=== PATIENT | female | born 1975 | race Hispanic/Latino ===

== ENCOUNTER 2019-02-16 08:12 | Observation (INO) | payer BC ==
[2019-02-16] MEDS ORDERED: MORPHINE 4 MG/ML SYR ONE (09:01)
[2019-02-16] MEDS ORDERED: NA CHLORIDE 0.9% 1,000 ML ONE (09:01)
[2019-02-16] MEDS ORDERED: ONDANSETRON 4 MG/2 ML VIAL ONE (09:01)
--- NOTE | 2019-02-16 09:06 | ER ---
Nurse's Notes [facility] Name: Mandie Napoles Age: 44 yrs Sex: Female : 1975 Arrival Date: 02/16/2019 Time: 08:16 Bed 30 Private MD: Darwin Izaguirre B Diagnosis: demise Presentation: 02/16 08:23 Presenting complaint: Patient states: Approx 19-20 weeks gestation, reports clear fluid ph leaking last night and vaginal bleeding w/ lower abdominal pain. Transition of care: patient was not received from another setting of care. Onset of symptoms was February 16, 2019. Risk Assessment: Do you want to hurt yourself or someone else? Patient reports no desire to harm self or others. Initial Sepsis Screen: Does the patient meet any 2 criteria? No. Patient's initial sepsis screen is negative. Does the patient have a suspected source of infection? No. Patient's initial sepsis screen is negative. Care prior to arrival: None. 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 - Social history:: Smoking status: Patient/guardian denies using tobacco. - Ebola Screening: : No symptoms or risks identified at this time. - Family history:: not pertinent. - Hospitalizations: : No recent hospitalization is reported. Screenin:45 Abuse screen: Denies threats or abuse. Denies injuries from another. Nutritional ph screening: No deficits noted. Tuberculosis screening: Fall Risk None identified. Assessment: 08:20 Obstetrical Assessment: Contractions began this morning. Patient reports abdominal ph cramping. General: Appears in no apparent distress. uncomfortable, well groomed, Behavior is cooperative, appropriate for age, anxious. Pain: Complains of pain in suprapubic area Quality of pain is described as crampy. Neuro: Level of Consciousness is awake, alert, obeys commands, Oriented to person, place, time, situation. Cardiovascular: Capillary refill < 3 seconds in bilateral fingers Patient's skin is warm and dry. Respiratory: Airway is patent Respiratory effort is even, unlabored, Respiratory pattern is regular, symmetrical. GI: Abdomen is round Reports lower abdominal pain. : Reports discharge, watery, pain in suprapubic area vaginal bleeding that is. Derm: Skin is intact, is healthy with good turgor, Skin is pink, warm \\T\\ dry. Musculoskeletal: Circulation, motion, and sensation intact. Range of motion: intact in all extremities. 08:43 Reassessment: Pt states, " I feel like something is coming out and I'm bleding a lot." ph Dr Dc notified and at bedside, umbilical cord noted to be protruding from vaginal canal, poultry boner OB notified, ERP remains at bedside. 08:51 Reassessment: Fetus delivered w/ breech presentation, Robert OSCAR at bedside to ph assist L\\T\\D nurse. 09:15 Reassessment: Placenta delivered, appears to be intact, VSS, ERP remains at bedside. ph Vital Signs: 08:24 BP 133 / 78; Pulse 88; Resp 18; Temp 98.1; Pulse Ox 98% on R/A; Weight 64.41 kg; ph 09:25 BP 118 / 57; Pulse 67; Resp 18; Pulse Ox 99% on 2 lpm NC; ph ED Course: 08:16 Patient arrived in ED. dp 08:17 Jim Dc MD is Attending Physician. rn 08:18 Darwin Izaguirre MD is Private Physician. dp 08:22 Diana Alexander RN is Primary Nurse. ph 08:24 Triage completed. ph 08:35 Patient has correct armband on for positive identification. Placed in gown. Bed in low ph position. Call light in reach. Side rails up X 1. Pulse ox on. NIBP on. Door closed. Noise minimized. Warm blanket given. Head of bed elevated. 08:45 Arm band placed on. ph 08:50 Inserted saline lock: 18 gauge in right antecubital area, using aseptic technique. ph Blood collected. 08:51 vaginal delivery of . Patient admitted, IV remains in place. ph 09:04 Darwin Izaguirre MD is Hospitalizing Provider. rn Administered Medications: 08:52 Drug: morphine 4 mg Route: IVP; Site: right antecubital; ph 09:15 Follow up: Response: No adverse reaction ph 08:52 Drug: Zofran 4 mg Route: IVP; Site: right antecubital; ph 09:15 Follow up: Response: No adverse reaction ph 08:52 Drug: NS 0.9% 1000 ml Route: IV; Rate: 1000 ml; Site: right antecubital; ph 09:25 Follow up: Response: No adverse reaction; IV Status: Infusion continued upon admission ph 09:54 Not Given (administered in L\\T\\D): Pitocin 20 units IV at calculated rate once ph Outcome: 09:04 Decision to Hospitalize by Provider. rn 09:28 Admitted to L \\T\\ D, accompanied by nurse, family with patient, via stretcher, with ph oxygen, on monitor, with chart. 09:28 Condition: stable 09:28 Instructed on the need for admit. 09:55 Patient left the ED. ph Signatures: Jim Dc MD MD rn Hall, Patricia, RN RN ph Baxter, Heather, RN RN Ahmet Wright
--- NOTE | 2019-02-16 09:06 | EDPHYS ---
Physician Documentation [facility] Name: Mandie Napoles Age: 44 yrs Sex: Female : 1975 Arrival Date: 02/16/2019 Time: 08:16 Bed 30 Private MD: Darwin Izaguirre B ED Physician Jim Dc HPI: 02/16 08:25 This 44 yrs old Female presents to ER via Unassigned with complaints of OB rn Problem (> 20 Weeks). 08:25 The patient presents to the emergency department with abdominal pain, vaginal bleeding, rn that is light, with no clots. The estimated gestational age is 19 weeks. course: care: private OB physician, Leakage of Fluid: yes, Ultrasound: the patient had an ultrasound. Previous pregnancies: in previous pregnancies patient has had. The patient has not experienced similar symptoms in the past. At approx 19 weeks presents with lower abd cramping, leakage of small amount of clear fluid, has now stopped, and today having lower abd cramping. . 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 - Social history:: Smoking status: Patient/guardian denies using tobacco. - Ebola Screening: : No symptoms or risks identified at this time. - Family history:: not pertinent. - Hospitalizations: : No recent hospitalization is reported. ROS: 08:25 Constitutional: Negative for fever, chills, and weight loss, Cardiovascular: Negative rn for chest pain, palpitations, and edema, Respiratory: Negative for shortness of breath, cough, wheezing, and pleuritic chest pain, Abdomen/GI: + lower abd cramping Back: Negative for injury and pain, : + vaginal bleeding and leakage of fluid MS/Extremity: Negative for injury and deformity, Skin: Negative for injury, rash, and discoloration, Neuro: Negative for headache, weakness, numbness, tingling, and seizure. Exam: 08:25 Constitutional: This is a well developed, well nourished patient who is awake, alert, rn appears anxious Head/Face: Normocephalic, atraumatic. ENT: MMM Respiratory: No increased work of breathing, no retractions or nasal flaring. Abdomen/GI: soft, + mild suprapubic tenderness, no rebound Skin: Warm, dry with normal turgor. Normal color with no rashes, no lesions, and no evidence of cellulitis. MS/ Extremity: Pulses equal, no cyanosis. Neurovascular intact. Full, normal range of motion. Equal circumference. Neuro: Awake and alert, GCS 15, oriented to person, place, time, and situation. Vital Signs: 08:24 BP 133 / 78; Pulse 88; Resp 18; Temp 98.1; Pulse Ox 98% on R/A; Weight 64.41 kg; ph 09:25 BP 118 / 57; Pulse 67; Resp 18; Pulse Ox 99% on 2 lpm NC; ph Procedures: 09:16 Delivery of infant: Patient placed in dorsal lithotomy position. Sterile conditions rn were utilized. Imminent delivery was expected. Rupture of membranes - spontaneous, position was breech. Station is Presenting part visible on exam. Bleeding was minimal. Cord cut and clamped. stillborn. Mother doing well. sent to L\T\D. MDM: 08:17 Patient medically screened. rn 08:48 ED course: Dr. Mello consulted, she is on her way. Approx 20 weeks gestation, on exam, rn fetus breach and umbilical prolapse. Likely demise. Waiting on OB to arrive for further care.. 08:56 ED course: Fetus delivered, intact, + demise, Dr. Mello arrived, patient is one rn of Dr Saenz, requests to contact Dr. Izaguirre, called twice, no answer. L\T\D nurse in room assisting.. 09:00 ED course: Spoke with Dr. Izaguirre, plans to move her up to L\T\D for further care and rn placenta delivery. . 09:03 Differential diagnosis: demise. Data reviewed: vital signs, nurses notes, and as rn a result, I will admit patient. Counseling: I had a detailed discussion with the patient and/or guardian regarding: the historical points, exam findings, and any diagnostic results supporting the discharge/admit diagnosis, the need for further work-up and treatment in the hospital. Response to treatment: the patient's symptoms have mildly improved after treatment. ED course: Dr. Izaguirre requests patient be moved to L\T\D. 02/16 08:23 Order name: Quantitative Hcg rn 02/16 08:23 Order name: Basic Metabolic Panel rn 02/16 08:23 Order name: CBC with Diff rn 02/16 08:24 Order name: HCG, Quantitative EDMS 02/16 08:46 Order name: Type And Screen iw 02/16 08:23 Order name: IV Saline Lock; Complete Time: 09:55 rn 02/16 09:32 Order name: CBC Smear Scan EDMS 02/16 08:23 Order name: Labs collected and sent; Complete Time: 09:56 rn 02/16 08:23 Order name: NPO; Complete Time: 09:56 rn Administered Medications: 08:52 Drug: morphine 4 mg Route: IVP; Site: right antecubital; ph 09:15 Follow up: Response: No adverse reaction ph 08:52 Drug: Zofran 4 mg Route: IVP; Site: right antecubital; ph 09:15 Follow up: Response: No adverse reaction ph 08:52 Drug: NS 0.9% 1000 ml Route: IV; Rate: 1000 ml; Site: right antecubital; ph 09:25 Follow up: Response: No adverse reaction; IV Status: Infusion continued upon admission ph 09:54 Not Given (administered in L\T\D): Pitocin 20 units IV at calculated rate once ph Disposition: 02/16/19 09:04 Hospitalization ordered by Darwin Izaguirre for Observation. Preliminary diagnosis is demise. - Bed requested for Telemetry/MedSurg (observation). - Status is Observation. ph - Condition is Stable. - Problem is new. - Symptoms have improved. UTI on Admission? No Signatures: Dispatcher [employer] EDMT Randa Medina RN RN iw Nieto, Roman, MD MD rn Hall, Patricia, RN RN ph Corrections: (The following items were deleted from the chart) 08:58 08:25 OB Limited+[id number].RAD.BRZ ordered. [facility] EDMT 09:55 09:04 Hospitalization Ordered by Darwin Izaguirre MD for Observation. Preliminary ph diagnosis is demise. Bed requested for Telemetry/MedSurg (observation). Status is Observation. Condition is Stable. Problem is new. Symptoms have improved. UTI on Admission? No. rn
[2019-02-16 09:27] LABS: Absolute Lymphocytes (CBC) 1.1 K/uL (0.7-4.9); Basophils % 0.1 % (0-1.3); Eosinophils % 0.6 % (0-4.4); Hematocrit 42.2 % (36.0-45.0); Lymphocytes % 6.3 % (15.3-44.8); MPV 10.3 fL (7.6-11.3); Monocytes % 5.7 % (3.3-12.3); RBC Red Blood Cell Count 4.49 M/uL (3.86-4.86)
[2019-02-16] MEDS ORDERED: MEPERIDINE HCL 25 MG/0.5 ML ONE (09:37)
[2019-02-16] MEDS ORDERED: METHYLERGONOVINE 0.2MG/ML AMP IM ONE (09:38)
[2019-02-16] MEDS ORDERED: CARBOPROST TROME 250 MCG/ML IM ONE (09:38)
[2019-02-16] MEDS ORDERED: OXYTOCIN/LR 20 UNIT/1,000 ML BAG IV ONE (09:38)
[2019-02-16 09:49] LABS: Platelet Estimate ADEQ; Urine White Blood Cell Casts OK
[2019-02-16 09:50] LABS: Blood Morphology Comment NOT SEEN (NOT SEEN)
[2019-02-16] MEDS ORDERED: OXYTOCIN/LR 20 UNIT/1,000 ML BAG IV SCH (10:00)
[2019-02-16 10:02] LABS: BUN Blood Urea Nitrogen 6 mg/dL (7-18); Bicarbonate 25 mmol/L (21-32); Glucose Level 87 mg/dL (74-106); HCG, Quantitative 5833 mIU/mL (1-3); Potassium 3.5 mmol/L (3.5-5.1); Sodium Level 139 mmol/L (136-145)
[2019-02-16] MEDS ORDERED: CEFAZOLIN/NS 1gm 1 GM/50 ML BAG IVPB ONE (10:07)
[2019-02-16] MEDS ORDERED: CEFAZOLIN/SWI 1gm 1 GM/10 ML SYR ONE (10:42)
[2019-02-16] MEDS ORDERED: IBUPROFEN 400 MG TAB PO ONE (12:12)
--- NOTE | 2019-02-16 13:47 | PREOPHP ---
Date of Admission: 02/16/2019 History Of Present Illness: A 44-year-old, 5, para 4, seen on 1 or 2 occasions in my office. Approximately 17 to 19 weeks by best estimates. Says last night her bag of water ruptured , came to our emergency room, passed the fetus at that point. A nonviable male who phenotypically lo oks completely normal and then shortly thereafter the placenta. Her bleeding is minimal at this poin t. She is Rh positive. She got IV drip Pitocin going right now. Her vital signs are all stable. W barney will keep her until this afternoon and dismiss her. I am giving her 1 g of Ancef at this point for prophylaxis. May send her home with some further prophylaxis. She is to see me in the office in 1 week. Right now, there are no obvious reasons for the spontaneous but her age of course is the factor and even though the baby looks phenotypically normal there may be a chromosomal problem. The placenta was supposedly intact. I have not seen it, as the emergency room delivered the placenta , but the baby looks completely normal as far as I can tell. Full discussion with the mother. We wi ll keep her until this afternoon and then dismiss her. Diagnosis: Spontaneous at approximately 19 weeks' gestation. REMBERTO/BRITTANIE Voice ID: [id number]
--- NOTE | 2019-02-21 14:09 | DS ---
Date of Discharge: 02/16/2019 History And Hospital Course: A 44-year-old female, 5, para 4, approximately 17-19 weeks gest ation, came in the emergency room, aborted the fetus and the placenta in the emergency room. Was sen t up to Labor and Delivery, was kept, and given antibiotics and uterine stimulating Pitocin as well a s Methergine. She was observed for several hours then dismissed with Cytotec for uterine tone and an tibiotic in case she had amnionitis, which did not appear that she had. Fetus was a male, phenotypic ally normal. Placenta sent to Pathology for analysis. Patient was instructed to come to my office i n approximately 5 days for followup, to report any temperature elevation of 100 degrees or greater, s evere pain, heavy bleeding, or any other type of abnormalities. She is Rh positive, therefore does n ot need RhoGAM. Final Diagnoses: Intrauterine gestation, approximately 19 weeks in a 44-year-old, multiparous female , spontaneous . Follow up in my office. REMBERTO/BRITTANIE Voice ID: [id number] Report ID: [id number]
== END 2019-02-16 15:14 | disposition home or self-care (01) ==
LOC: ER 08:12 → 2ND-WC 10:30
PROVIDERS: ADMIT Specialist; ATTEND Specialist
DX: O42.012 Preterm premature rupture of membranes, onset of labor within 24 hours of rupture, second trimester (principal); O09.522 Supervision of elderly multigravida, second trimester; O41.1220 Chorioamnionitis, second trimester, not applicable or unspecified; O32.1XX0 Maternal care for breech presentation, not applicable or unspecified; Z37.1 Single stillbirth; Z3A.19 19 weeks gestation of pregnancy
CPT/HCPCS: 36415; 80048; 84702; 85025; 86850; 86900; 86901; 88300; 88305; 96361; 96374; 96375; 99285; G0378; J0690; J2175; J2210; J2405; J2590; J7030